=== PATIENT | female | born 1990 | race African-American/Black ===

== ENCOUNTER 2018-01-29 02:05 | Emergency (ER) | payer OTHER ==
[2018-01-29 02:15] VITALS: BP 131/86
[2018-01-29] MEDS ORDERED: TDAP ADULT 0.5 ML INJ (BOOSTRIX) IM ONE (02:16)
[2018-01-29] MEDS ORDERED: IBUPROFEN 600 MG TAB PO ONE (02:45)
[2018-01-29] MEDS ORDERED: ACETAMINOPHEN 500 MG TAB PO ONE (02:46)
--- NOTE | 2018-01-29 02:50 | EDPHY ---
H & P Time Seen by Provider: 01/29/18 02:29 HPI/ROS: This patient presents with injuries to her left 2nd and 3rd fingers. 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 She reports moderate pain, swelling and abrasions. 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 She reports that the pain worsens with flexing her fingers with no other exacerbating factors. Injury occurred 1 hr prior to arrival. She came in by private vehicle. ROS: Neuro: No numbness or tingling Musculoskeletal: No other injuries Cardiovascular: No discoloration the affected fingers. 5 point ROS is otherwise negative Past Medical/Surgical History: Otherwise healthy however she does not believe that she has had a tetanus immunization. Smoking Status: Never smoked Physical Exam: Physical Exam Vital signs are normal. General: No acute distress Lungs: No respiratory distress. Cardiac: Brisk capillary refill is intact throughout. Pulses are 2+ and symmetric in the affected extremity. Skin: No rash or pallor. Extremities: Atraumatic normal except for left hand Left hand: Patient has mild circumferential swelling to the 2nd 3rd fingers with superficial abrasion to the dorsum of the 2nd finger and superficial abrasion to the palmar aspect of the 3rd finger. She is able to partially flex the fingers. No malrotation the Neuro: Alert and oriented x3 with no sensorimotor deficits. . Initial differential diagnosis: Finger contusion, finger abrasions, finger fracture, Constitutional: Initial Vital Signs Temperature (C) 36.7 C 01/29/18 02:10 Heart Rate 70 01/29/18 02:10 Respiratory Rate 18 01/29/18 02:10 Blood Pressure 131/86 H 01/29/18 02:10 O2 Sat (%) 96 01/29/18 02:10 O2 Delivery Mode Room Air Allergies/Adverse Reactions: No Known Allergies Allergy (Unverified 01/29/18 02:09) Home Medications: Medication Instructions Recorded NK [No Known Home Meds] 01/29/18 MDM/Departure - MDM Diagnostics: Hand x-rays: Negative for finger fractures by my interpretation Imaging: I viewed and interpreted images myself Medications Given: Discontinued Medications Acetaminophen (Tylenol) 1,000 mg PO EDNOW ONE Stop: 01/29/18 02:47 Last Admin: 01/29/18 03:01 Dose: 1,000 mg Diphtheria/Tetanus/Acell Pertussis (Boostrix) 0.5 ml IM .ONCE ONE Stop: 01/29/18 02:17 Last Admin: 01/29/18 02:38 Dose: 0.5 ml Ibuprofen (Motrin) 600 mg PO EDNOW ONE Stop: 01/29/18 02:46 Last Admin: 01/29/18 03:00 Dose: 600 mg ED Course/Re-evaluation: Ibuprofen Tylenol p.o. Abrasions were cleaned by our staff and then bent and bandages were placed. Discussion: Findings consistent with finger contusions and abrasions. Counseled patient regarding - Depart Disposition: Home, Routine, Self-Care Clinical Impression: Abrasion of finger Qualifiers: Encounter type: initial encounter Qualified Code(s): S60.419A - Abrasion of unspecified finger, initial encounter Contusion, fingers Qualifiers: Encounter type: initial encounter Finger: middle finger Damage to nail status: without damage Laterality: left Qualified Code(s): S60.032A - Contusion of left middle finger without damage to nail, initial encounter Condition: Good Instructions: Contusion in Adults (ED), Abrasion (ED) Additional Instructions: Diagnoses: Finger contusions and abrasions Plan: Ice 20 min at a time 3 times a day or more for the next 3 days. [id number] mg per 6 hr and Tylenol 650-1000 mg up to but not to exceed 3000 mg in 24 hr for pain No use of the affected hand at work for the next 2 days. Clean the abrasions daily with warm soapy water. Recheck with workman's comp in 2 days prior to returning to work. Referrals: Patient,NotPresent [Primary Care Provider] - As per Instructions
== END 2018-01-29 03:04 | disposition home or self-care (01) ==
LOC: CED 02:05
DX: S60.032A Contusion of left middle finger without damage to nail, initial encounter (principal); S60.411A Abrasion of left index finger, initial encounter; S60.413A Abrasion of left middle finger, initial encounter; Z23 Encounter for immunization; W23.0XXA Caught, crushed, jammed, or pinched between moving objects, initial encounter; Y92.89 Other specified places as the place of occurrence of the external cause; Y99.8 Other external cause status; Y93.G1 Activity, food preparation and clean up
CPT/HCPCS: 73140-PO